=== PATIENT | female | born 1990 | race American Indian/Alaskan Native ===

== ENCOUNTER 2018-05-07 01:27 | Emergency (ER) | payer OTHER ==
[~2018-05-07] VITALS: Ht 170.2 cm; Wt 119.3 kg
[2018-05-07] MEDS ORDERED: ALLERGY SYRING1 EAC1 MISC (01:48)
== END 2018-05-07 02:13 | disposition home or self-care (01) ==
LOC: ED 01:27
DX: R04.0 Epistaxis (principal); Z79.899 Other long term (current) drug therapy
CPT/HCPCS: 30901; 99283

== ENCOUNTER 2023-11-29 06:58 | Day surgery (SDC) | payer BC, OTHER ==
[2023-11-24 10:15] VITALS: BP 131/89
[~2023-11-29] VITALS: Ht 170.2 cm; Wt 116.8 kg
[~2023-11-29 06:58] MED LIST: ALLERGY SYRING1 EAC1 MISC; DEXAMETHASONE SOD PHOS 4 MG/ML VIAL ONE; FAMOTIDINE 20 MG/ 2 ML VIAL ONE; KETOROLAC TROMETHAMINE 30 MG/ML VIAL ONE; LACTATED RINGER'S 1,000 ML IV ONE; LACTATED RINGER'S 1,000 ML IV SCH; LIDOCAINE HCL 4% 5 ML AMP ONE; METOCLOPRAMIDE HCL 10 MG/2 ML SDV ONE; MIDAZOLAM HCL 2 MG/2 ML VIAL ONE; MULTI VITAMIN1 EACH PO; PROVERA10 MG PO; ROCURONIUM BROMIDE 50 MG/5 ML SYR ONE; SUCCINYLCHOLINE IN 0.9% NACL 200 MG/10 ML SYRINGE ONE; SUGAMMADEX SODIUM 200 MG/2 ML ML ONE; TRANEXAMIC ACI650 MG PO; fentaNYL citrate 100 MCG/2 ML VIAL ONE; ondansetron HCL 4 MG/2 ML VIAL ONE; propofoL 200 MG/20 ML VIAL ONE
[2023-11-29] MEDS ORDERED: IBLOOD GLUCOSE TEST STRIP 1 EA TEST VI PRN ×2 (07:00→08:30)
[2023-11-29] MEDS ORDERED: LIDOCAINE HCL 1% 5 ML SDV INJ ONE (07:00)
[2023-11-29 07:10] VITALS: BP 141/82
[2023-11-29] MEDS ORDERED: PROCHLORPERAZINE EDISYLATE 10 MG/2 ML VIAL IV PRN (08:30)
[2023-11-29] MEDS ORDERED: droPERidol 5 MG/2 ML VIAL IV PRN (08:30)
[2023-11-29] MEDS ORDERED: fentaNYL citrate 50 MCG/ML SDV IV PRN (08:30)
[2023-11-29] MEDS ORDERED: ondansetron HCL 4 MG/2 ML VIAL IV PRN ×2 (08:30→10:15)
[2023-11-29] MEDS ORDERED: NALOXONE HCL 0.4 MG SYR IV PRN ×2 (08:30→10:15)
[2023-11-29] MEDS ORDERED: MORPHINE SULFATE 10 MG/ML VIAL IV PRN ×2 (08:30→10:15)
[2023-11-29] MEDS ORDERED: METOCLOPRAMIDE HCL 10 MG/2 ML SDV IV PRN ×2 (08:30→10:15)
[2023-11-29] MEDS ORDERED: dexmedeTOMIDine HCl 200 MCG/2 ML VIAL ONE (08:49)
[2023-11-29] MEDS ORDERED: SEVOFLURANE 250 ML BTL ONE (09:14)
[2023-11-29] MEDS ORDERED: OXYCODONE/APAP 5/325 TAB PO PRN (10:15)
[2023-11-29] MEDS ORDERED: SIMETHICONE 125 MG TABLET CHEWABLE PO PRN (10:15)
[2023-11-29] MEDS ORDERED: FAMOTIDINE 20 MG TAB PO PRN (10:15)
--- NOTE | 2023-11-29 10:17 | NUR ---
11/29/23 Raheem7 Paola Sims 0942 PT ARRIVES TO THE PACU. A SLIGHT CHIN LIFT NEEDED. RESP EVEN AND UNLABORED BUT SHALLOW. PT HAS MASK AT 10L. ORAL AIRWAY IN PLACE. PT NONAROUSABLE TO TACTILE STIMULI. 0954 PT EYES OPEN AND STARTS REACHING TOWARD FACE. ORAL AIRWAY REMOVED. PT EASILY FALLS BACK TO SLEEP. 0957 PT O2 MASK REMOVED. PT ABLE TO POINT AT PAIN SCALE AND SHOW 4/10 PAIN AND STATED IT WAS TOLERABLE AT THIS TIME. PT EASILY FALLS BACK TO SLEEP AND SHALLOW BUT EVEN RESP NOTED.
[2023-11-29 10:47] VITALS: BP 142/82
--- NOTE | 2023-11-29 10:56 | NUR ---
PT RETURNED TO ROOM WITH AT BEDSIDE, PT REPORTS PAIN 5/10 AND PAIN MEDICATION GIVEN PER EMAR. PT SIPPING WATER AND EATING WITH NO CONCERNS. ALL QUESTIONS ANSWERED AND CALL LIGHT WITHIN REACH. PT SITTING IN HIGH FOWLERS. PT PLACED HER GLASSES ON AND RESTING WITH EYES CLOSED. EDUCATION GIVEN ON DC CRITERIA.
[2023-11-29 11:55] VITALS: BP 127/81
--- NOTE | 2023-11-29 15:28 | NUR ---
LE 1140-PT UP TO BEDSIDE. DENIES NAUSEA OR DIZZINESS. PT HAVING SOME DRAINAGE FROM VAGINA WHEN UP MOVING. PERIPAD IN PLACE AND MESH UNDERWARE ON. LE 1145-PT AMBULATES TO RESTROOM. GAIT STEADY AND TOLERATED WELL. PT VOIDS 300ML OF PINK URINE. LE 1150-PT BACK TO BED. IN ROOM.
--- NOTE | 2023-11-29 15:30 | NUR ---
BARBY 1155-PT LAYING IN BED. RESP EVEN AND UNLABORED. RATES PAIN A 3/10. SMALL AMOUNT OF DRAINAGE ON PERIPAD AND BANDAIDS. PT READY TO GO HOME. IN ROOM TO HELP PT GET DRESSED.
--- NOTE | 2023-11-29 15:31 | NUR ---
BARBY 1215-WENT OVER DISCHARGE INSTRUCTIONS WITH PT AND . WENT OVER POSTOP MEDICATIONS. ALL QUESTIONS ANSWERED. PT AMBULATES TO WHEELCHAIR. RIDE PROVIDED TO FRONT OF HOSPITAL WHERE WAS WAITING WITH THE CAR.
--- NOTE | 2023-11-30 19:02 | OR ---
[address] [address] Signed DATE OF OPERATION: 11/29/2023 SURGEON: Mary Anne Tilley DO PREOPERATIVE DIAGNOSES: 1. Abnormal uterine bleeding. 2. Uterine septum. 3. At risk for ovarian cancer. POSTOPERATIVE DIAGNOSES: 1. Abnormal uterine bleeding. 2. Uterine septum. 3. At risk for ovarian cancer. 4. Thickened endometrium. PROCEDURES PERFORMED: 1. Laparoscopic bilateral salpingectomy. 2. Hysteroscopic resection of uterine septum. 3. Hysteroscopy dilation and curettage. RN INFORMATICS: None. ANESTHESIA: General. ESTIMATED BLOOD LOSS: 25 mL. SPECIMENS: 1. Bilateral fallopian tubes. 2. Endometrial curettings and poor partial uterine septum. COMPLICATIONS: None. FINDINGS: On laparoscopy fatty appearance of the liver, otherwise normal right upper quadrant and left upper quadrant. Significantly increased intra-abdominal adipose. In the pelvis, arcuate appearance of the uterus with normal tubes, ovaries, and remainder of the Electronically Signed By: MARY ANNE TILLEY DO (JD) 11/30/231901 PATIENT NAME: RAMY RIVERS OPERATIVE REPORT DATE OF : 86 REPORT #: [id number] PHYSICIAN: MARY ANNE TILLEY DO (JD) PCP: DORIE JORDAN REPORT IS CONFIDENTIAL AND NOT TO BE RELEASED WITHOUT AUTHORIZATION [address] [address] Signed pelvis. On hysteroscopy, the uterine septum was quite thick and approaches the internal os. Either uterine chamber with thickened endometrium and tubal ostia noted. Partial resection of the uterine septum was performed but due to arcuate configuration and return of hysteroscopic fluid, decision was made to abandon complete uterine septum resection. FLUID DEFICIT: 465 mL. INDICATIONS: Ms. Rivers is a very pleasant 33-year-old P0 female, who presents for bilateral salpingectomy, hysteroscopy, dilation, curettage, and revision of uterine septum. The patient with history of oligomenorrhea throughout her life with only 5 or 6 menstrual cycles between the ages of 19 and 33. She then developed heavy vaginal bleeding this spring, which has not improved with multiple medical therapies. Ultrasound demonstrated likely uterine septum. The patient reports that she has completed childbirth and desires bilateral salpingectomy for ovarian cancer risk reduction. Risks, benefits, and alternatives were discussed in detail with the patient. The patient understands and wished to proceed with the procedure. DESCRIPTION OF PROCEDURE: The patient was taken to the OR. Time-out was performed to confirm correct patient and correct procedure. General anesthesia was adequately established. The patient was prepped and draped in dorsal lithotomy position with her feet in Yellofin stirrups. ICPs were on and running and no preoperative antibiotics or heparin was indicated. A Mortensen catheter was inserted. A weighted speculum was placed in the vagina and the anterior lip of the cervix was grasped with a Hegar dilator. The cervix was gently dilated using Hegar dilators to #7. An Fourche uterine manipulator was placed. The surgeon's gloves were changed and attention was turned to the abdomen. The base of the umbilicus was infiltrated with 0.25% Marcaine with epinephrine and a 5 mm stab incision was made. A 5 mm laparoscopic port was placed under direct visualization without complication. Low opening pressures were noted upon obtaining pneumoperitoneum. A 5 mm ambulance assistant ports were placed in the left lower quadrant and right lower quadrant under direct visualization without difficulty. Survey of the abdomen and pelvis was performed demonstrating fatty appearance of the liver and increased intra-abdominal adipose tissue. The pelvis appeared largely normal with arcuate configuration of the uterus, normal tubes and ovaries bilaterally. No evidence of endometriosis or pelvic adhesions. Attention was turned to bilateral salpingectomy. The left fallopian tube was grasped at the fimbriated end, elevated and dissected along the mesosalpinx and amputated the cornu. The process was repeated on the right side without difficulty. Both fallopian tubes were sent to pathology for further evaluation. The dissection site along the mesosalpinx was evaluated and found to be hemostatic. Pneumoperitoneum was reduced. Electronically Signed By: MARY ANNE FERNANDEZ) DO TARYN 11/30/231901 PATIENT NAME: RAMY RIVERS OPERATIVE REPORT DATE OF : 86 REPORT #: [id number] PHYSICIAN: MARY ANNE TILLEY DO (JD) PCP: DORIE JORDAN REPORT IS CONFIDENTIAL AND NOT TO BE RELEASED WITHOUT AUTHORIZATION [address] [address] Signed Trocars were removed and trocar sites were repaired using 4-0 Vicryl. Attention was turned back to the pelvis. The Fourche uterine manipulator was removed and the Allis clamp replaced on the cervix. Operative hysteroscope was then placed in the cervical os and advanced under direct visualization through the cervical canal. Upon entry through the internal os, uterine septum was noted, it was quite thick with two uterine chambers diverging with tubal ostia either and. The endometrium was quite thickened. A MyoSure Reach device was selected and endometrium was circumferentially sampled in either uterine chamber. The MyoSure Reach was then used to partially resect the uterine septum. This was quite thick and approximately one-half of the length of the uterine septum was resected. The hysteroscopic fluid was briskly returning from the cervical os and due to the arcuate configuration of the uterus and thick septum with the patient's desire to not pursue future fertility, decision was made to abandon complete resection of the uterine septum after weighing risks and benefits. The hysteroscope was withdrawn. Cervix examined and found to be hemostatic and the patient was taken to the PACU in good and stable condition. Sponge, needle and instrument counts were correct x2 at the end of the procedure. DO STEFFI Mills/MODL /[id number] Copies: ~ Electronically Signed By: MARY ANNE TILLEY DO (JD) 11/30/23 1902 PATIENT NAME: RAMY RIVERS OPERATIVE REPORT DATE OF : 86 REPORT #: [id number] PHYSICIAN: MARY ANNE TILLEY DO (JD) PCP: DORIE JORDAN REPORT IS CONFIDENTIAL AND NOT TO BE RELEASED WITHOUT AUTHORIZATION
--- NOTE | 2023-12-05 09:01 | PATH ---
[facility] [address], [place] [address] Signed SPECIMEN(S): A FALLOPIAN TUBES, BILATERAL SPECIMEN(S): B ENDOMETRIAL CURETTINGS, UTERINE SEPTUM SPECIMEN SOURCE: A. FALLOPIAN TUBES, BILATERAL B. ENDOMETRIAL CURETTINGS, UTERINE SEPTUM CLINICAL HISTORY: AUB; uterine septum; risk reduction for ovarian CA FINAL PATHOLOGIC DIAGNOSIS: A. Right and left fallopian tubes, bilateral salpingectomy: - Right and left fallopian tubes with fimbriated ends. - Both tubes with focal serous tubal intraepithelial lesion (STIL). - 0.5 millimeter focus of STIL is identified at fimbriated end of each tube. - One tube has 2 benign paratubal cysts measuring 0.4 and 0.25 cm in diameter. - Negative for malignancy. B. Endometrium and uterine septum, curettage: - Endometrium with weak or early proliferative activity. - Strips of unremarkable myometrium; consistent with history of endometrial septum. - Portions of endometrium with fibrotic stroma; suggestive of endometrial polyp. - Negative for hyperplasia, atypia, and malignancy. COMMENT: Immunohistochemical stain for p53 shows strong uniform staining in each of the serous tubal intraepithelial lesion foci (performed on blocks A1 and A2). The remainder of the epithelium of both tubes shows a wild-type staining pattern. As a part of [employer]' quality control industrial engineer program, this case has been reviewed by a second pathologist. SDL MICROSCOPIC EXAMINATION: Histologic sections of all submitted blocks are examined by light microscopy. These findings, together with the gross examination, support the pathologic diagnosis. GROSS DESCRIPTION: PATIENT NAME: RAMY HARDIN PATHOLOGY DATE OF : 86 REPORT #: [id number] PHYSICIAN: DIGNA SOLITARIO PCP: DORIE JORDAN REPORT IS CONFIDENTIAL AND NOT TO BE RELEASED WITHOUT AUTHORIZATION [facility] [address], [place] [address] Signed A. The specimen, labeled and designated "Tita, bilateral fallopian tubes," is received in formalin and consists of two undesignated fallopian tubes. Both show fimbria and violaceus and smooth serosa. The first tube is 5.2 x 0.7 cm. The second fallopian tube is 6.2 x 0.6 cm. Sectioning through both fallopian tubes is grossly unremarkable. Cassette Summary: (A1) first fallopian tube, field representative sections (A2) second fallopian tube, field representative sections B. The specimen, labeled and designated "Tita, endometrial curettings and portion of uterine septum," is received in formalin and consists of multiple fragments of soft restrepo-red tissue and blood measuring 2.8 x 3.0 x 0.3 cm in aggregate. Entirely submitted in (B1-B2). JS (under the direct supervision of a pathologist) The Gross Description was prepared using a voice recognition system. The report was reviewed for accuracy; however, sound-alike word errors, addition and/or deletions may occur. If there are any questions about this report, please contact Client Services. ADDITIONAL NOTES: Immunohistochemical and/or in situ hybridization studies if performed in this case included appropriate positive controls that reacted as expected. This test was developed and its performance characteristics determined by [employer]. It has not been cleared or approved by the U.S. Food and Drug Administration. The FDA has determined that such clearance or approval is not necessary. This test is used for clinical purposes. It should not be regarded as investigational or for research. [employer] is certified under the Clinical Laboratory Improvement Amendments of 1988 (CLIA) as qualified to perform high complexity clinical laboratory testing. PERFORMING LABORATORY: Technical component was performed by [employer], [address] [place] [id number] (CLIA# [id number]). Professional interpretation [facility], [address] [place] [id number] (CLIA#: [id number]). Diagnostician: Moon Cooper MD Pathologist Electronically Signed 12/05/2023 PATIENT NAME: RAMY HARDIN PATHOLOGY DATE OF : 86 REPORT #: [id number] PHYSICIAN: DIGNA PATHOLOGY PCP: DORIE JODRAN REPORT IS CONFIDENTIAL AND NOT TO BE RELEASED WITHOUT AUTHORIZATION [facility] [address] [place] [address] [place] [address] Signed Copies: ~ PATIENT NAME: RAMY HARDIN PATHOLOGY DATE OF : 86 REPORT #: [id number] PHYSICIAN: DIGNA SOLITARIO PCP: DORIE JORDAN REPORT IS CONFIDENTIAL AND NOT TO BE RELEASED WITHOUT AUTHORIZATION
== END 2023-11-29 12:15 | disposition home or self-care (01) ==
LOC: OPS 06:58 → DS 06:58 → OPS 09:00
PROVIDERS: ATTEND Obstetrics & Gynecology
PROC: 0UN98ZZ Release Uterus, Via Natural or Artificial Opening Endoscopic (ICD-10-PCS; principal; 2023-11-29 09:00)
PROC: 0UT74ZZ Resection of Bilateral Fallopian Tubes, Percutaneous Endoscopic Approach (ICD-10-PCS; 2023-11-29 09:00)
DX: N93.9 Abnormal uterine and vaginal bleeding, unspecified (principal); Q51.28 Other and unspecified doubling of uterus; N85.8 Other specified noninflammatory disorders of uterus; N83.8 Other noninflammatory disorders of ovary, fallopian tube and broad ligament; E11.9 Type 2 diabetes mellitus without complications; Z40.03 Encounter for prophylactic removal of fallopian tube(s); Z79.899 Other long term (current) drug therapy
CPT/HCPCS: 00840; J0330; J1100; J1885; J2250; J2405; J2704; J2765; J3010; J3490; J7121